=== PATIENT | female | born 1980 | race Caucasian/White ===

== ENCOUNTER 2020-08-01 10:52 | Emergency (ER) | payer BC ==
[2020-08-01 11:29] VITALS: BMI 21.1
[2020-08-01] MEDS ORDERED: SODIUM CHLORIDE 1,000 ML IV STA (12:22)
[2020-08-01] MEDS ORDERED: ACETAMINOPHEN 1000 MG/100 ML BAG IVPB ONE (12:23)
[2020-08-01] MEDS ORDERED: ACETAMINOPHEN INJECTION 100 ML IVPB ONE (12:26)
[2020-08-01 16:24] VITALS: BP 94/70; PULSE 70; TEMP 97.9
== END 2020-08-01 16:45 | disposition home or self-care (01) ==
LOC: JER 10:52
PROC: 3E033NZ Introduction of Analgesics, Hypnotics, Sedatives into Peripheral Vein, Percutaneous Approach (ICD-10-PCS; principal; 2020-08-01)
PROC: 3E0337Z Introduction of Electrolytic and Water Balance Substance into Peripheral Vein, Percutaneous Approach (ICD-10-PCS; 2020-08-01)
DX: U07.1 COVID-19 (principal)
CPT/HCPCS: 71046-TC-FY; 99285-25; C9803; J0131; U0003